=== PATIENT | male | born 1965 | race Caucasian/White ===

== ENCOUNTER 2017-06-28 12:50 | Emergency (ER) | payer SELFPAY ==
[~2017-06-28] VITALS: Ht 172.7 cm; Wt 81.6 kg
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
[2017-06-28] MEDS ORDERED: TRAMADOL HCL 50 MG TAB PO ONE (13:45)
== END 2017-06-28 15:15 | disposition home or self-care (01) ==
LOC: FSED 12:50
DX: S60.032A Contusion of left middle finger without damage to nail, initial encounter (principal); F17.210 Nicotine dependence, cigarettes, uncomplicated; Y93.89 Activity, other specified
CPT/HCPCS: 99283